=== PATIENT | female | born 1950 | race Caucasian/White ===

== ENCOUNTER → 2016-11-22 | Outpatient (CLI) | payer OTHER ==
[~2016-11-22] MED LIST: CELEXA20 MG PO; DIABETA5 MG PO; DONNATAL 5 ML5 ML PO; KEFLEX500 MG PO; LOSARTAN POTASS25 M1 PO; METFORMIN HCL1000 MG PO; SIMVASTATIN40 MG PO; TRAZADONE HYDR100 MG PO; VICODIN 500 MG-1 TAB PO
== END | disposition home or self-care (01) ==
LOC: MAMMO 13:07
DX: Z12.31 Encounter for screening mammogram for malignant neoplasm of breast (principal)

== ENCOUNTER → 2017-01-18 | Outpatient (CLI) | payer OTHER | END | disposition home or self-care (01) | LOC: RAD 10:43 | DX: R10.9 Unspecified abdominal pain (principal); M54.5 Low back pain; I10 Essential (primary) hypertension; E11.9 Type 2 diabetes mellitus without complications; Z87.891 Personal history of nicotine dependence ==

== ENCOUNTER → 2017-03-28 | Outpatient (CLI) | payer OTHER | END | disposition home or self-care (01) | LOC: US 14:46 | DX: N30.01 Acute cystitis with hematuria (principal); N32.89 Other specified disorders of bladder ==

== ENCOUNTER 2017-04-26 11:39 | Emergency (ER) | payer OTHER ==
[~2017-04-26] VITALS: Ht 157.4 cm; Wt 65.3 kg
[2017-04-26 11:59] VITALS: BP 114/63
[2017-04-26 12:19] LABS: BASO # 0.1 10*3/uL (0.0-0.1); BASO % 0.7 % (0.0-1.0); EOS # 0.5 10*3/uL (0.0-0.4); HEMATOCRIT 32.6 % (37.0-47.0); HEMOGLOBIN 10.4 g/dl (12.0-16.0); LYMPH % 23.4 % (27.0-41.0); MEAN CELL VOLUME 81.9 fl (81.0-99.0); MEAN CORPUSCULAR HGB 26.1 pg (27.0-31.0); MEAN CORPUSCULAR HGB CONC 31.9 g/dl (33.0-37.0); MEAN PLATELET VOLUME 10.7 fl (9.6-12.3); MONO # 0.8 10*3/uL (0.1-1.0); MONO % 8.7 % (3.0-9.0); NEUT # 5.3 10*3/uL (2.3-7.9); NEUT % 60.7 % (47.0-73.0); PLATELET COUNT AUTOMATED 195 10*3/uL (130-400); RED BLOOD COUNT 3.98 10*6/uL (4.10-5.10); RED CELL DISTRI WIDTH 14.4 % (0-14.5); WHITE BLOOD COUNT 8.7 10*3/uL (4.8-10.8)
[2017-04-26 12:28] LABS: ACT PARTIAL THROMBO TIME 24.3 SECONDS (20.8-31.5)
[2017-04-26] MEDS ORDERED: TOUJEO SOL300 UNIT/1 SQ (12:35)
[2017-04-26 12:36] LABS: ALBUMIN 3.3 gm/dl (3.1-4.5); CREATININE 1.26 mg/dL (0.55-1.02); POTASSIUM 3.9 mmol/L (3.5-5.1); TOTAL PROTEIN 7.7 gm/dL (6.4-8.2)
[2017-04-26] MEDS ORDERED: JANUVIA100 MG PO (12:36)
[2017-04-26 12:37] LABS: TROPONIN I 0.035 ng/ml (<0.045)
[2017-04-26] MEDS ORDERED: VITAMIN D5000 UNI1 PO (12:37)
[2017-04-26] MEDS ORDERED: FOSAMAX70 M1 PO (12:37)
[2017-04-26] MEDS ORDERED: SENNA8.6 MG PO (12:37)
[2017-04-26] MEDS ORDERED: Synthroid,Levo25 MCG PO (12:38)
[2017-04-26] MEDS ORDERED: LOSARTAN-HCTZ1 EACH PO (12:38)
[2017-04-26] MEDS ORDERED: PRILOSEC20 M1 PO (12:38)
[2017-04-26] MEDS ORDERED: ATORVASTATIN CA20 M1 PO (12:39)
[2017-04-26] MEDS ORDERED: SERTRALINE HYD100 MG PO (12:39)
[2017-04-26] MEDS ORDERED: IBUPROFEN600 MG PO (12:40)
[2017-04-26] MEDS ORDERED: MECLIZINE HCL25 M2 PO (12:40)
[2017-04-26] MEDS ORDERED: ZYRTEC10 MG PO (12:40)
== END 2017-04-26 15:36 | disposition home or self-care (01) ==
LOC: ED 11:39
PROVIDERS: Emergency Medicine
DX: R06.02 Shortness of breath (principal); R06.00 Dyspnea, unspecified; R07.89 Other chest pain; Z98.51 Tubal ligation status; Z79.899 Other long term (current) drug therapy; Z79.4 Long term (current) use of insulin

== ENCOUNTER → 2018-11-28 | Outpatient (CLI) | payer OTHER ==
[~2018-11-28] MED LIST changes: +ATORVASTATIN CA20 M1 PO; +FOSAMAX70 M1 PO; +IBUPROFEN600 MG PO; +JANUVIA100 MG PO; +LOSARTAN-HCTZ1 EACH PO; +MECLIZINE HCL25 M2 PO; +PRILOSEC20 M1 PO; +SENNA8.6 MG PO; +SERTRALINE HYD100 MG PO; +Synthroid,Levo25 MCG PO; +TOUJEO SOL300 UNIT/1 SQ; +VITAMIN D5000 UNI1 PO; +ZYRTEC10 MG PO
== END | disposition home or self-care (01) ==
LOC: US 12:50
DX: N95.0 Postmenopausal bleeding (principal)

== ENCOUNTER → 2019-02-11 | Outpatient (CLI) | payer OTHER ==
[2019-02-11 12:17] LABS: BASO # 0.1 10*3/uL (0.0-0.1); BASO % 0.5 % (0.0-1.0); EOS # 0.2 10*3/uL (0.0-0.4); EOS % 1.6 % (1.0-4.0); HEMATOCRIT 33.2 % (37.0-47.0); HEMOGLOBIN 10.3 g/dl (12.0-16.0); LYMPH # 1.6 10*3/uL (1.3-4.4); LYMPH % 16.6 % (27.0-41.0); MEAN CELL VOLUME 82.4 fl (81.0-99.0); MEAN CORPUSCULAR HGB 25.6 pg (27.0-31.0); MEAN PLATELET VOLUME 10.8 fl (9.6-12.3); MONO # 0.7 10*3/uL (0.1-1.0); MONO % 6.8 % (3.0-9.0); NEUT # 7.1 10*3/uL (2.3-7.9); NEUT % 73.8 % (47.0-73.0); PLATELET COUNT AUTOMATED 177 10*3/uL (130-400); RED BLOOD COUNT 4.03 10*6/uL (4.10-5.10); RED CELL DISTRI WIDTH 14.6 % (0-14.5); WHITE BLOOD COUNT 9.7 10*3/uL (4.8-10.8)
[2019-02-11 12:30] LABS: ALBUMIN 3.5 gm/dl (3.1-4.5); ALKALINE PHOSPHATASE 76 U/L (45-117); BUN 18 mg/dl (7-24); CHLORIDE 108 mmol/L (98-107); CREATININE 1.07 mg/dL (0.55-1.02); POTASSIUM 3.9 mmol/L (3.5-5.1); SGOT/AST 14 IU/L (3-35); SGPT/ALT 25 U/L (12-78); SODIUM 138 mmol/L (136-145); TOTAL PROTEIN 7.5 gm/dL (6.4-8.2)
== END | disposition home or self-care (01) ==
LOC: LAB 11:54
PROVIDERS: Internal Medicine Hematology & Oncology
DX: Z51.11 Encounter for antineoplastic chemotherapy (principal); C53.9 Malignant neoplasm of cervix uteri, unspecified; C53.8 Malignant neoplasm of overlapping sites of cervix uteri; R11.2 Nausea with vomiting, unspecified

== ENCOUNTER → 2020-03-02 | Outpatient (CLI) | payer OTHER ==
[2020-03-02 11:33] LABS: BILIRUBIN Negative (Negative); BLOOD Trace-Intact (Negative); CLARITY Clear (Clear); COLOR Yellow (Yellow); GLUCOSE Negative (Negative); KETONE Negative (Negative); LEUKO ESTERASE 1+ (Negative); NITRITE Negative (Negative); PH 5.5 (4.5-8.0); UROBILINOGEN 0.2 E.U./dl (0.0-1.0)
[2020-03-02 11:51] LABS: BACTERIA TRACE; EPITHELIAL CELLS 0-2
[2020-03-02 12:01] LABS: CREATININE 1.45 mg/dL (0.55-1.02); POTASSIUM 4.4 mmol/L (3.5-5.1)
[2020-03-02 12:24] LABS: PTH INTACT 47.9 pg/mL (18.5-88.0); VITAMIN D, 25-HYDROXY 77.5 ng/mL (30-100)
[2020-03-03 10:07] LABS: CREATININE,URINE 45.7 mg/dL (Not Estab.)
== END | disposition home or self-care (01) ==
LOC: US 03-01 08:30 → LAB 10:25 → US 10:30
PROVIDERS: ATTEND Internal Medicine Nephrology
DX: N18.32 Chronic kidney disease, stage 3b (principal); E55.9 Vitamin D deficiency, unspecified

== ENCOUNTER → 2020-05-16 | Outpatient (CLI) | payer OTHER | END | disposition home or self-care (01) | LOC: COVID19 12:08 | PROVIDERS: ATTEND Internal Medicine Nephrology | DX: Z20.822 Contact with and (suspected) exposure to COVID-19 (principal) ==

== ENCOUNTER → 2020-10-19 | Outpatient (CLI) | payer OTHER ==
[~2020-10-19] MED LIST changes: +ASPIRIN CHEWABL81 MG PO; +FEROSUL325 M1 PO; +IRBESARTAN150 MG PO; +LEVOFLOXACIN500 MG PO; +LEVOTHYROXINE50 MCG PO; +NATURE'S BLEND F1 MG PO; +NEURONTIN300 MG PO; +TRESIBA FL100 UNIT/1 SQ
== END | disposition home or self-care (01) ==
LOC: RAD 12:19
PROVIDERS: ATTEND Internal Medicine Nephrology
DX: J84.10 Pulmonary fibrosis, unspecified (principal); J18.9 Pneumonia, unspecified organism; J98.4 Other disorders of lung

== ENCOUNTER → 2020-11-03 | Outpatient (CLI) | payer OTHER | END | disposition home or self-care (01) | LOC: RAD 12:03 | PROVIDERS: ATTEND Internal Medicine Nephrology | DX: J44.9 Chronic obstructive pulmonary disease, unspecified (principal); J84.9 Interstitial pulmonary disease, unspecified; J84.10 Pulmonary fibrosis, unspecified; I51.7 Cardiomegaly; E11.65 Type 2 diabetes mellitus with hyperglycemia ==

== ENCOUNTER → 2020-11-24 | Outpatient (CLI) | payer OTHER | END | disposition home or self-care (01) | LOC: MAMMO 10:36 | PROVIDERS: ATTEND Internal Medicine Nephrology | DX: Z12.31 Encounter for screening mammogram for malignant neoplasm of breast (principal); N64.89 Other specified disorders of breast ==

== ENCOUNTER → 2020-12-20 | Outpatient (CLI) | payer OTHER | END | disposition home or self-care (01) | LOC: CT 07:46 | PROVIDERS: ATTEND Internal Medicine Nephrology | DX: J84.10 Pulmonary fibrosis, unspecified (principal); I25.10 Atherosclerotic heart disease of native coronary artery without angina pectoris; K44.9 Diaphragmatic hernia without obstruction or gangrene; A48.1 Legionnaires' disease ==

== ENCOUNTER → 2021-02-23 | Outpatient (CLI) | payer OTHER | END | disposition home or self-care (01) | LOC: US 08:21 | PROVIDERS: ATTEND Internal Medicine Nephrology | DX: K76.0 Fatty (change of) liver, not elsewhere classified (principal); K52.9 Noninfective gastroenteritis and colitis, unspecified ==

== ENCOUNTER → 2021-04-19 | Outpatient (CLI) | payer OTHER | END | disposition home or self-care (01) | LOC: RAD 08:39 | PROVIDERS: ATTEND Internal Medicine Nephrology | DX: Z13.820 Encounter for screening for osteoporosis (principal); M81.0 Age-related osteoporosis without current pathological fracture; Z78.0 Asymptomatic menopausal state ==

== ENCOUNTER → 2022-04-09 | Outpatient (CLI) | payer OTHER | END | disposition home or self-care (01) | LOC: MAMMO 10:30 | PROVIDERS: ATTEND Internal Medicine Nephrology | DX: Z12.31 Encounter for screening mammogram for malignant neoplasm of breast (principal) ==

== ENCOUNTER → 2022-04-26 | Outpatient (CLI) | payer OTHER | END | disposition home or self-care (01) | LOC: MAMMO 12:41 | PROVIDERS: ATTEND Internal Medicine Nephrology | DX: R92.8 Other abnormal and inconclusive findings on diagnostic imaging of breast (principal); R92.2 Inconclusive mammogram ==

== ENCOUNTER 2022-09-07 11:05 | Emergency (ER) | payer OTHER ==
[~2022-09-07] VITALS: Wt 60.8 kg
[2022-09-07 11:16] VITALS: BP 140/86
[2022-09-07 12:03] LABS: BASO % 0.6 % (0.0-1.0); EOS # 0.2 10*3/uL (0.0-0.4); EOS % 4.1 % (1.0-4.0); HEMATOCRIT 33.1 % (37.0-47.0); LYMPH % 17.7 % (27.0-41.0); MEAN CELL VOLUME 85.1 fl (81.0-99.0); MEAN CORPUSCULAR HGB 26.7 pg (27.0-31.0); MEAN CORPUSCULAR HGB CONC 31.4 g/dl (33.0-37.0); MEAN PLATELET VOLUME 10.4 fl (9.6-12.3); MONO # 0.6 10*3/uL (0.1-1.0); MONO % 10.9 % (3.0-9.0); NEUT # 3.6 10*3/uL (2.3-7.9); NEUT % 66.3 % (47.0-73.0); PLATELET COUNT AUTOMATED 190 10*3/uL (130-400); RED BLOOD COUNT 3.89 10*6/uL (4.10-5.10); RED CELL DISTRI WIDTH 15.9 % (0-14.5); WHITE BLOOD COUNT 5.4 10*3/uL (4.8-10.8)
[2022-09-07 12:04] LABS: BILIRUBIN Negative (Negative); BLOOD Negative (Negative); CLARITY Clear (Clear); COLOR Yellow (Yellow); GLUCOSE Negative (Negative); KETONE Trace (Negative); LEUKO ESTERASE Trace (Negative); NITRITE Negative (Negative)
[2022-09-07 12:16] LABS: BACTERIA TRACE; RBC 0-2 rbc/hpf (0-2)
[2022-09-07 12:16] LABS: ACT PARTIAL THROMBO TIME 30.7 SECONDS (20.0-32.1)
[2022-09-07 12:24] LABS: POTASSIUM 4.1 mmol/L (3.4-5.1); TOTAL PROTEIN 7.7 gm/dL (6.0-8.0)
[2022-09-07] MEDS ORDERED: PREDNISONE20 M1 PO (14:34)
[2022-09-07] MEDS ORDERED: VIBRAMYCIN100 MG PO (14:34)
[2022-09-07] MEDS ORDERED: PROVENTIL HFA6.7 GM INH (14:34)
== END 2022-09-07 14:41 | disposition home or self-care (01) ==
LOC: ED 11:05
PROVIDERS: Physician Assistant
DX: J18.9 Pneumonia, unspecified organism (principal); E11.9 Type 2 diabetes mellitus without complications; I10 Essential (primary) hypertension; F32.A Depression, unspecified; E78.00 Pure hypercholesterolemia, unspecified; Z98.51 Tubal ligation status; Z98.890 Other specified postprocedural states

== ENCOUNTER 2022-09-21 09:20 | Inpatient (IN) | payer OTHER ==
[~2022-09-21] VITALS: Wt 57.6 kg
[2022-09-21] VITALS (10 sets, daily range): BP systolic 110–158; BP diastolic 47–84
[~2022-09-21 09:20] MED LIST changes: +PREDNISONE20 M1 PO; +PROVENTIL HFA6.7 GM INH; +VIBRAMYCIN100 MG PO
[2022-09-21 10:14] LABS: BASO # 0.1 10*3/uL (0.0-0.1); BASO % 0.5 % (0.0-1.0); EOS # 0.1 10*3/uL (0.0-0.4); EOS % 0.5 % (1.0-4.0); HEMATOCRIT 33.7 % (37.0-47.0); LYMPH # 0.6 10*3/uL (1.3-4.4); LYMPH % 4.6 % (27.0-41.0); MEAN CORPUSCULAR HGB 26.4 pg (27.0-31.0); MEAN CORPUSCULAR HGB CONC 31.5 g/dl (33.0-37.0); MEAN PLATELET VOLUME 10.2 fl (9.6-12.3); MONO # 0.6 10*3/uL (0.1-1.0); MONO % 4.9 % (3.0-9.0); NEUT # 11.4 10*3/uL (2.3-7.9); NEUT % 89.1 % (47.0-73.0); PLATELET COUNT AUTOMATED 285 10*3/uL (130-400); RED BLOOD COUNT 4.01 10*6/uL (4.10-5.10); RED CELL DISTRI WIDTH 15.9 % (0-14.5); WHITE BLOOD COUNT 12.7 10*3/uL (4.8-10.8)
[2022-09-21 10:26] LABS: ACT PARTIAL THROMBO TIME 32.7 SECONDS (20.0-32.1); INTERNATIONAL NORM RATIO 1.1 (2.0-3.5)
[2022-09-21] MEDS ORDERED: TOUJEO SOL300 UNIT/1 SQ (10:29)
[2022-09-21 10:36] LABS: ALKALINE PHOSPHATASE 114 U/L (46-116); BUN 17 mg/dl (9-23); CHLORIDE 105 mmol/L (98-107); LIPASE 23 U/L (12-53); POTASSIUM 3.9 mmol/L (3.4-5.1); SGPT/ALT 15 U/L (10-49); TOTAL PROTEIN 6.5 gm/dL (6.0-8.0)
[2022-09-21 23:19] LABS: ABG BASE EXCESS -4.5 mmol/L (-2.0-2.0); ARTERIAL BLOOD GAS PH 7.443 (7.35-7.45); ARTERIAL BLOOD GAS PO2 61.9 (80-90)
[2022-09-22 03:38] LABS: ABG BASE EXCESS -4.1 mmol/L (-2.0-2.0); ARTERIAL BLOOD GAS PH 7.477 (7.35-7.45)
[2022-09-22 04:00] VITALS: BP 138/76
[2022-09-22 06:15] LABS: MEAN CELL VOLUME 84.2 fl (81.0-99.0); MEAN CORPUSCULAR HGB CONC 30.9 g/dl (33.0-37.0); MEAN PLATELET VOLUME 10.6 fl (9.6-12.3); PLATELET COUNT AUTOMATED 232 10*3/uL (130-400); RED BLOOD COUNT 3.92 10*6/uL (4.10-5.10); WHITE BLOOD COUNT 10.1 10*3/uL (4.8-10.8)
[2022-09-22 06:24] LABS: MANUAL DIFF REFLEX YES
[2022-09-22 07:19] LABS: MICROCYTOSIS SLIGHT; PLATELET SUFFICIENCY NORMAL (NORMAL); TOTAL CELLS COUNTED 100 #CELLS
[2022-09-22 07:20] LABS: BURR CELLS FEW; OVALOCYTES FEW; POLYCHROMASIA SLIGHT; SCHISTOCYTES FEW
[2022-09-22 08:00] VITALS: BP 89/57
[2022-09-22 09:00] LABS: POTASSIUM 3.8 mmol/L (3.4-5.1); TOTAL PROTEIN 6.8 gm/dL (6.0-8.0)
[2022-09-22 12:00] VITALS: BP 113/53
[2022-09-22 13:10] LABS: ABG BASE EXCESS -1.4 mmol/L (-2.0-2.0); ARTERIAL BLOOD GAS PH 7.471 (7.35-7.45); ARTERIAL BLOOD GAS PO2 84.7 (80-90)
[2022-09-22 16:00] VITALS: BP 123/58
[2022-09-22 20:00] VITALS: BP 103/67
[2022-09-22 22:04] VITALS: BP 89/52
[2022-09-23] VITALS (12 sets, daily range): BP systolic 79–115; BP diastolic 43–62
[2022-09-23 06:15] LABS: BASO % 0.2 % (0.0-1.0); HEMATOCRIT 28.1 % (37.0-47.0); LYMPH # 0.4 10*3/uL (1.3-4.4); LYMPH % 6.6 % (27.0-41.0); MEAN CELL VOLUME 82.4 fl (81.0-99.0); MEAN CORPUSCULAR HGB 26.4 pg (27.0-31.0); MEAN PLATELET VOLUME 10.8 fl (9.6-12.3); MONO # 0.2 10*3/uL (0.1-1.0); MONO % 3.3 % (3.0-9.0); NEUT # 4.9 10*3/uL (2.3-7.9); NEUT % 89.5 % (47.0-73.0); PLATELET COUNT AUTOMATED 207 10*3/uL (130-400); RED BLOOD COUNT 3.41 10*6/uL (4.10-5.10); RED CELL DISTRI WIDTH 15.8 % (0-14.5); WHITE BLOOD COUNT 5.5 10*3/uL (4.8-10.8)
[2022-09-23 08:01] LABS: POTASSIUM 3.7 mmol/L (3.4-5.1)
[2022-09-23 08:31] LABS: ABG BASE EXCESS -1.4 mmol/L (-2.0-2.0); ARTERIAL BLOOD GAS PH 7.45 (7.35-7.45); ARTERIAL BLOOD GAS PO2 78.9 (80-90)
[2022-09-24] VITALS (13 sets, daily range): BP systolic 89–127; BP diastolic 39–59
[2022-09-24 05:40] LABS: ALKALINE PHOSPHATASE 109 U/L (46-116); BUN 23 mg/dl (9-23); CHLORIDE 108 mmol/L (98-107); LDH 567 U/L (120-246); POTASSIUM 3.5 mmol/L (3.4-5.1); SGPT/ALT 21 U/L (10-49)
[2022-09-24 06:07] LABS: BASO % 0.1 % (0.0-1.0); HEMATOCRIT 25.1 % (37.0-47.0); LYMPH # 0.5 10*3/uL (1.3-4.4); LYMPH % 7.1 % (27.0-41.0); MEAN CELL VOLUME 83.9 fl (81.0-99.0); MEAN CORPUSCULAR HGB 26.4 pg (27.0-31.0); MEAN CORPUSCULAR HGB CONC 31.5 g/dl (33.0-37.0); MEAN PLATELET VOLUME 10.7 fl (9.6-12.3); MONO # 0.3 10*3/uL (0.1-1.0); MONO % 4.4 % (3.0-9.0); NEUT # 6.4 10*3/uL (2.3-7.9); NEUT % 87.9 % (47.0-73.0); PLATELET COUNT AUTOMATED 189 10*3/uL (130-400); RED BLOOD COUNT 2.99 10*6/uL (4.10-5.10); RED CELL DISTRI WIDTH 15.7 % (0-14.5); WHITE BLOOD COUNT 7.3 10*3/uL (4.8-10.8)
[2022-09-25] VITALS (13 sets, daily range): BP systolic 78–147; BP diastolic 41–70
[2022-09-25 07:04] LABS: HEMATOCRIT 25.3 % (37.0-47.0); LYMPH # 0.6 10*3/uL (1.3-4.4); LYMPH % 9.4 % (27.0-41.0); MEAN CELL VOLUME 83.2 fl (81.0-99.0); MEAN CORPUSCULAR HGB 26.6 pg (27.0-31.0); MEAN PLATELET VOLUME 10.8 fl (9.6-12.3); MONO # 0.3 10*3/uL (0.1-1.0); MONO % 5.2 % (3.0-9.0); NEUT % 84.2 % (47.0-73.0); PLATELET COUNT AUTOMATED 189 10*3/uL (130-400); RED BLOOD COUNT 3.04 10*6/uL (4.10-5.10); RED CELL DISTRI WIDTH 15.8 % (0-14.5); WHITE BLOOD COUNT 5.9 10*3/uL (4.8-10.8)
[2022-09-25 07:14] LABS: BUN 26 mg/dl (9-23); CHLORIDE 108 mmol/L (98-107); POTASSIUM 3.7 mmol/L (3.4-5.1)
[2022-09-25 13:06] LABS: MYCOPLASMA PNEUMONIAE IGG <100 U/mL (0-99); MYCOPLASMA PNEUMONIAE IGM <770 U/mL (0-769)
[2022-09-26] VITALS (13 sets, daily range): BP systolic 84–150; BP diastolic 52–81
[2022-09-26 05:17] LABS: POTASSIUM 4.1 mmol/L (3.4-5.1); TOTAL PROTEIN 5.9 gm/dL (6.0-8.0)
[2022-09-26 06:22] LABS: BASO % 0.1 % (0.0-1.0); EOS % 0.6 % (1.0-4.0); HEMATOCRIT 25.2 % (37.0-47.0); LYMPH # 0.8 10*3/uL (1.3-4.4); LYMPH % 12.3 % (27.0-41.0); MEAN CELL VOLUME 84.3 fl (81.0-99.0); MEAN CORPUSCULAR HGB 26.4 pg (27.0-31.0); MEAN CORPUSCULAR HGB CONC 31.3 g/dl (33.0-37.0); MEAN PLATELET VOLUME 10.8 fl (9.6-12.3); MONO # 0.3 10*3/uL (0.1-1.0); MONO % 4.7 % (3.0-9.0); NEUT # 5.5 10*3/uL (2.3-7.9); NEUT % 80.7 % (47.0-73.0); NUCLEATED RED BLOOD CELL 0.3 % (0.0-0.0); PLATELET COUNT AUTOMATED 191 10*3/uL (130-400); RED BLOOD COUNT 2.99 10*6/uL (4.10-5.10); WHITE BLOOD COUNT 6.8 10*3/uL (4.8-10.8)
[2022-09-26 07:46] LABS: ARTERIAL BLOOD GAS PH 7.45 (7.35-7.45); ARTERIAL BLOOD GAS PO2 64.9 (80-90)
[2022-09-27] VITALS (58 sets, daily range): BP systolic 58–184; BP diastolic 40–78
[2022-09-27 00:06] LABS: HISTOPLASMA MYCLIAL AB Negative (Neg:<1:2); HISTOPLASMA YEAST AB Negative (Neg:<1:2)
[2022-09-27 06:28] LABS: BUN 23 mg/dl (9-23); CHLORIDE 109 mmol/L (98-107); POTASSIUM 3.9 mmol/L (3.4-5.1)
[2022-09-27 06:37] LABS: BASO % 0.1 % (0.0-1.0); EOS # 0.1 10*3/uL (0.0-0.4); EOS % 0.7 % (1.0-4.0); HEMATOCRIT 24.9 % (37.0-47.0); LYMPH # 0.7 10*3/uL (1.3-4.4); LYMPH % 10.7 % (27.0-41.0); MEAN CELL VOLUME 83.8 fl (81.0-99.0); MEAN CORPUSCULAR HGB 26.3 pg (27.0-31.0); MEAN CORPUSCULAR HGB CONC 31.3 g/dl (33.0-37.0); MEAN PLATELET VOLUME 11.2 fl (9.6-12.3); MONO # 0.3 10*3/uL (0.1-1.0); NEUT # 5.6 10*3/uL (2.3-7.9); NEUT % 83.6 % (47.0-73.0); PLATELET COUNT AUTOMATED 185 10*3/uL (130-400); RED BLOOD COUNT 2.97 10*6/uL (4.10-5.10); RED CELL DISTRI WIDTH 16.1 % (0-14.5); WHITE BLOOD COUNT 6.7 10*3/uL (4.8-10.8)
[2022-09-27 14:30] LABS: ARTERIAL BLOOD GAS PH 7.311 (7.35-7.45); ARTERIAL BLOOD GAS PO2 131.5 (80-90)
[2022-09-27 14:31] LABS: ABG BASE EXCESS -7.2 mmol/L (-2.0-2.0)
[2022-09-27 17:26] LABS: ARTERIAL BLOOD GAS PH 7.298 (7.35-7.45)
[2022-09-27 19:38] LABS: ABG BASE EXCESS -6.6 mmol/L (-2.0-2.0); ARTERIAL BLOOD GAS PH 7.369 (7.35-7.45); ARTERIAL BLOOD GAS PO2 83.2 (80-90)
[2022-09-28] VITALS (10 sets, daily range): BP systolic 88–113; BP diastolic 50–64
[2022-09-28 06:46] LABS: ALKALINE PHOSPHATASE 101 U/L (46-116); BUN 18 mg/dl (9-23); CHLORIDE 108 mmol/L (98-107); LDH 551 U/L (120-246); POTASSIUM 3.3 mmol/L (3.4-5.1); SGPT/ALT 27 U/L (10-49)
[2022-09-28 07:14] LABS: BASO % 0.1 % (0.0-1.0); EOS # 0.2 10*3/uL (0.0-0.4); EOS % 1.7 % (1.0-4.0); HEMATOCRIT 26.8 % (37.0-47.0); LYMPH # 1.1 10*3/uL (1.3-4.4); LYMPH % 9.7 % (27.0-41.0); MEAN CELL VOLUME 84.5 fl (81.0-99.0); MEAN CORPUSCULAR HGB 26.5 pg (27.0-31.0); MEAN CORPUSCULAR HGB CONC 31.3 g/dl (33.0-37.0); MEAN PLATELET VOLUME 10.9 fl (9.6-12.3); MONO # 0.7 10*3/uL (0.1-1.0); MONO % 6.3 % (3.0-9.0); NEUT % 81.1 % (47.0-73.0); NUCLEATED RED BLOOD CELL 0.4 % (0.0-0.0); RED BLOOD COUNT 3.17 10*6/uL (4.10-5.10); RED CELL DISTRI WIDTH 16.5 % (0-14.5)
[2022-09-28 07:15] LABS: PLATELET COUNT AUTOMATED 253 10*3/uL (130-400)
[2022-09-28 08:01] LABS: ABG BASE EXCESS -4.7 mmol/L (-2.0-2.0); ARTERIAL BLOOD GAS PH 7.314 (7.35-7.45); ARTERIAL BLOOD GAS PO2 87.8 (80-90)
[2022-09-29] VITALS (12 sets, daily range): BP systolic 90–130; BP diastolic 47–69
[2022-09-29 06:07] LABS: ALKALINE PHOSPHATASE 90 U/L (46-116); BUN 16 mg/dl (9-23); CHLORIDE 109 mmol/L (98-107); LDH 495 U/L (120-246); POTASSIUM 3.2 mmol/L (3.4-5.1); SGPT/ALT 25 U/L (10-49); TOTAL PROTEIN 5.6 gm/dL (6.0-8.0)
[2022-09-29 06:21] LABS: BASO % 0.1 % (0.0-1.0); EOS # 0.1 10*3/uL (0.0-0.4); EOS % 1.1 % (1.0-4.0); HEMATOCRIT 24.8 % (37.0-47.0); LYMPH # 0.8 10*3/uL (1.3-4.4); LYMPH % 9.1 % (27.0-41.0); MEAN CELL VOLUME 86.1 fl (81.0-99.0); MEAN CORPUSCULAR HGB 25.7 pg (27.0-31.0); MEAN CORPUSCULAR HGB CONC 29.8 g/dl (33.0-37.0); MEAN PLATELET VOLUME 10.8 fl (9.6-12.3); MONO # 0.5 10*3/uL (0.1-1.0); MONO % 5.8 % (3.0-9.0); NEUT # 7.2 10*3/uL (2.3-7.9); NEUT % 82.3 % (47.0-73.0); PLATELET COUNT AUTOMATED 191 10*3/uL (130-400); RED BLOOD COUNT 2.88 10*6/uL (4.10-5.10); RED CELL DISTRI WIDTH 16.4 % (0-14.5); WHITE BLOOD COUNT 8.8 10*3/uL (4.8-10.8)
[2022-09-29 08:12] LABS: ABG BASE EXCESS -1.5 mmol/L (-2.0-2.0); ARTERIAL BLOOD GAS PH 7.374 (7.35-7.45); ARTERIAL BLOOD GAS PO2 75.3 (80-90)
[2022-09-30] VITALS (12 sets, daily range): BP systolic 99–140; BP diastolic 52–72
[2022-09-30 06:20] LABS: BASO % 0.1 % (0.0-1.0); EOS # 0.4 10*3/uL (0.0-0.4); EOS % 4.3 % (1.0-4.0); HEMATOCRIT 24.3 % (37.0-47.0); LYMPH # 1.1 10*3/uL (1.3-4.4); LYMPH % 12.6 % (27.0-41.0); MEAN CELL VOLUME 86.5 fl (81.0-99.0); MEAN CORPUSCULAR HGB 25.6 pg (27.0-31.0); MEAN CORPUSCULAR HGB CONC 29.6 g/dl (33.0-37.0); MEAN PLATELET VOLUME 11.1 fl (9.6-12.3); MONO # 0.6 10*3/uL (0.1-1.0); MONO % 6.6 % (3.0-9.0); NEUT # 6.4 10*3/uL (2.3-7.9); NEUT % 74.3 % (47.0-73.0); NUCLEATED RED BLOOD CELL 0.3 % (0.0-0.0); PLATELET COUNT AUTOMATED 204 10*3/uL (130-400); RED BLOOD COUNT 2.81 10*6/uL (4.10-5.10); RED CELL DISTRI WIDTH 16.8 % (0-14.5); WHITE BLOOD COUNT 8.6 10*3/uL (4.8-10.8)
[2022-09-30 06:33] LABS: ALKALINE PHOSPHATASE 77 U/L (46-116); BUN 14 mg/dl (9-23); CHLORIDE 111 mmol/L (98-107); POTASSIUM 3.7 mmol/L (3.4-5.1); SGPT/ALT 24 U/L (10-49); TOTAL PROTEIN 5.3 gm/dL (6.0-8.0)
[2022-09-30 07:55] LABS: ABG BASE EXCESS -1.8 mmol/L (-2.0-2.0); ARTERIAL BLOOD GAS PH 7.351 (7.35-7.45); ARTERIAL BLOOD GAS PO2 82.6 (80-90)
[2022-10-01] VITALS (16 sets, daily range): BP systolic 80–133; BP diastolic 42–71
[2022-10-01 05:17] LABS: ALKALINE PHOSPHATASE 88 U/L (46-116); CHLORIDE 107 mmol/L (98-107); POTASSIUM 3.5 mmol/L (3.4-5.1); SGPT/ALT 29 U/L (10-49); TOTAL PROTEIN 5.7 gm/dL (6.0-8.0)
[2022-10-01 05:25] LABS: BUN 26 mg/dl (9-23)
[2022-10-01 06:20] LABS: HEMATOCRIT 27.3 % (37.0-47.0); MEAN CELL VOLUME 85.8 fl (81.0-99.0); MEAN CORPUSCULAR HGB 26.1 pg (27.0-31.0); MEAN CORPUSCULAR HGB CONC 30.4 g/dl (33.0-37.0); MEAN PLATELET VOLUME 10.5 fl (9.6-12.3); NUCLEATED RED BLOOD CELL 0.1 10*3/uL (0.0-0.0); NUCLEATED RED BLOOD CELL 0.5 % (0.0-0.0); PLATELET COUNT AUTOMATED 257 10*3/uL (130-400); RED BLOOD COUNT 3.18 10*6/uL (4.10-5.10); RED CELL DISTRI WIDTH 16.5 % (0-14.5); WHITE BLOOD COUNT 12.6 10*3/uL (4.8-10.8)
[2022-10-01 06:44] LABS: MANUAL DIFF REFLEX YES
[2022-10-01 07:35] LABS: PLATELET SUFFICIENCY NORMAL (NORMAL); POLYCHROMASIA SLIGHT; TOTAL CELLS COUNTED 100 #CELLS
[2022-10-01 08:08] LABS: ABG BASE EXCESS -1.2 mmol/L (-2.0-2.0); ARTERIAL BLOOD GAS PH 7.335 (7.35-7.45); ARTERIAL BLOOD GAS PO2 73.7 (80-90)
[2022-10-01 11:51] LABS: ABG BASE EXCESS 0.5 mmol/L (-2.0-2.0); ARTERIAL BLOOD GAS PH 7.395 (7.35-7.45); ARTERIAL BLOOD GAS PO2 67.5 (80-90)
[2022-10-01 14:12] LABS: ARTERIAL BLOOD GAS PH 7.416 (7.35-7.45); ARTERIAL BLOOD GAS PO2 54.6 (80-90)
[2022-10-02] VITALS (12 sets, daily range): BP systolic 90–130; BP diastolic 49–82
[2022-10-02 06:17] LABS: MEAN CELL VOLUME 84.5 fl (81.0-99.0); MEAN CORPUSCULAR HGB CONC 30.8 g/dl (33.0-37.0); MEAN PLATELET VOLUME 10.9 fl (9.6-12.3); NUCLEATED RED BLOOD CELL 0.1 10*3/uL (0.0-0.0); NUCLEATED RED BLOOD CELL 0.5 % (0.0-0.0); PLATELET COUNT AUTOMATED 215 10*3/uL (130-400); RED BLOOD COUNT 2.96 10*6/uL (4.10-5.10); RED CELL DISTRI WIDTH 16.5 % (0-14.5); WHITE BLOOD COUNT 10.5 10*3/uL (4.8-10.8)
[2022-10-02 06:22] LABS: MANUAL DIFF REFLEX YES
[2022-10-02 06:31] LABS: TOTAL PROTEIN 5.8 gm/dL (6.0-8.0)
[2022-10-02 06:57] LABS: ATYPICAL LYMPHS 1 % (0-0); OVALOCYTES FEW; PLATELET SUFFICIENCY NORMAL (NORMAL); POLYCHROMASIA SLIGHT; ROULEAUX SLIGHT; SCHISTOCYTES FEW; TOTAL CELLS COUNTED 100 #CELLS
[2022-10-02 07:11] LABS: POTASSIUM 2.5 mmol/L (3.4-5.1)
[2022-10-02 08:01] LABS: ABG BASE EXCESS 4.5 mmol/L (-2.0-2.0); ARTERIAL BLOOD GAS PH 7.491 (7.35-7.45); ARTERIAL BLOOD GAS PO2 74.4 (80-90)
[2022-10-02 16:14] LABS: ABG BASE EXCESS 2.2 mmol/L (-2.0-2.0); ARTERIAL BLOOD GAS PH 7.466 (7.35-7.45); ARTERIAL BLOOD GAS PO2 78.2 (80-90)
[2022-10-03] VITALS (12 sets, daily range): BP systolic 99–145; BP diastolic 54–78
[2022-10-03 04:35] LABS: BASO % 0.1 % (0.0-1.0); EOS # 0.5 10*3/uL (0.0-0.4); EOS % 4.3 % (1.0-4.0); HEMATOCRIT 24.5 % (37.0-47.0); LYMPH # 1.1 10*3/uL (1.3-4.4); LYMPH % 9.9 % (27.0-41.0); MEAN CELL VOLUME 85.1 fl (81.0-99.0); MEAN CORPUSCULAR HGB 26.4 pg (27.0-31.0); MEAN PLATELET VOLUME 10.5 fl (9.6-12.3); MONO # 0.5 10*3/uL (0.1-1.0); NEUT # 9.1 10*3/uL (2.3-7.9); NEUT % 79.9 % (47.0-73.0); NUCLEATED RED BLOOD CELL 0.2 % (0.0-0.0); PLATELET COUNT AUTOMATED 175 10*3/uL (130-400); RED BLOOD COUNT 2.88 10*6/uL (4.10-5.10); RED CELL DISTRI WIDTH 16.4 % (0-14.5); WHITE BLOOD COUNT 11.4 10*3/uL (4.8-10.8)
[2022-10-03 05:11] LABS: ALKALINE PHOSPHATASE 85 U/L (46-116); BUN 37 mg/dl (9-23); CHLORIDE 112 mmol/L (98-107); LDH 472 U/L (120-246); SGPT/ALT 61 U/L (10-49); TOTAL PROTEIN 5.4 gm/dL (6.0-8.0)
[2022-10-03 07:45] LABS: ABG BASE EXCESS 3.3 mmol/L (-2.0-2.0); ARTERIAL BLOOD GAS PH 7.471 (7.35-7.45); ARTERIAL BLOOD GAS PO2 76.6 (80-90)
[2022-10-04] VITALS (9 sets, daily range): BP systolic 104–168; BP diastolic 50–80
[2022-10-04 05:26] LABS: ALKALINE PHOSPHATASE 112 U/L (46-116); BUN 29 mg/dl (9-23); CHLORIDE 108 mmol/L (98-107); LDH 487 U/L (120-246); POTASSIUM 3.9 mmol/L (3.4-5.1); SGPT/ALT 88 U/L (10-49); TOTAL PROTEIN 5.7 gm/dL (6.0-8.0)
[2022-10-04 06:17] LABS: BASO % 0.2 % (0.0-1.0); EOS # 0.5 10*3/uL (0.0-0.4); EOS % 3.8 % (1.0-4.0); HEMATOCRIT 24.8 % (37.0-47.0); LYMPH # 1.1 10*3/uL (1.3-4.4); LYMPH % 8.9 % (27.0-41.0); MEAN CELL VOLUME 85.5 fl (81.0-99.0); MEAN CORPUSCULAR HGB 26.2 pg (27.0-31.0); MEAN CORPUSCULAR HGB CONC 30.6 g/dl (33.0-37.0); MEAN PLATELET VOLUME 11.5 fl (9.6-12.3); MONO # 0.5 10*3/uL (0.1-1.0); MONO % 4.1 % (3.0-9.0); NEUT # 10.3 10*3/uL (2.3-7.9); NEUT % 82.1 % (47.0-73.0); NUCLEATED RED BLOOD CELL 0.2 % (0.0-0.0); PLATELET COUNT AUTOMATED 200 10*3/uL (130-400); RED CELL DISTRI WIDTH 16.4 % (0-14.5); WHITE BLOOD COUNT 12.5 10*3/uL (4.8-10.8)
[2022-10-05] VITALS (22 sets, daily range): BP systolic 119–178; BP diastolic 64–87
[2022-10-05 05:40] LABS: ALKALINE PHOSPHATASE 100 U/L (46-116); BUN 23 mg/dl (9-23); CHLORIDE 109 mmol/L (98-107); POTASSIUM 3.3 mmol/L (3.4-5.1); SGPT/ALT 58 U/L (10-49)
[2022-10-05 06:12] LABS: HEMATOCRIT 22.6 % (37.0-47.0); MEAN CELL VOLUME 86.3 fl (81.0-99.0); MEAN CORPUSCULAR HGB CONC 30.1 g/dl (33.0-37.0); MEAN PLATELET VOLUME 11.1 fl (9.6-12.3); NUCLEATED RED BLOOD CELL 0.2 % (0.0-0.0); PLATELET COUNT AUTOMATED 256 10*3/uL (130-400); RED BLOOD COUNT 2.62 10*6/uL (4.10-5.10); RED CELL DISTRI WIDTH 16.2 % (0-14.5); WHITE BLOOD COUNT 16.8 10*3/uL (4.8-10.8)
[2022-10-05 06:15] LABS: MANUAL DIFF REFLEX YES
[2022-10-05 06:59] LABS: TOTAL CELLS COUNTED 100 #CELLS
[2022-10-05 07:00] LABS: OVALOCYTES FEW; PLATELET SUFFICIENCY NORMAL (NORMAL); POLYCHROMASIA SLIGHT; ROULEAUX SLIGHT; TOXIC GRANULATION SLIGHT
[2022-10-05 20:43] LABS: HEMATOCRIT 35.9 % (37.0-47.0)
[2022-10-06] VITALS: BP 150/81
[2022-10-06 04:00] VITALS: BP 132/72
[2022-10-06 06:10] LABS: BASO % 0.2 % (0.0-1.0); EOS # 0.3 10*3/uL (0.0-0.4); EOS % 2.5 % (1.0-4.0); HEMATOCRIT 33.7 % (37.0-47.0); LYMPH # 1.1 10*3/uL (1.3-4.4); LYMPH % 8.7 % (27.0-41.0); MEAN CELL VOLUME 84.5 fl (81.0-99.0); MEAN CORPUSCULAR HGB 26.6 pg (27.0-31.0); MEAN CORPUSCULAR HGB CONC 31.5 g/dl (33.0-37.0); MEAN PLATELET VOLUME 11.1 fl (9.6-12.3); MONO # 0.6 10*3/uL (0.1-1.0); MONO % 4.9 % (3.0-9.0); NEUT # 10.1 10*3/uL (2.3-7.9); NEUT % 82.6 % (47.0-73.0); NUCLEATED RED BLOOD CELL 0.2 % (0.0-0.0); RED BLOOD COUNT 3.99 10*6/uL (4.10-5.10); RED CELL DISTRI WIDTH 16.2 % (0-14.5); WHITE BLOOD COUNT 12.2 10*3/uL (4.8-10.8)
[2022-10-06 06:54] LABS: ALKALINE PHOSPHATASE 99 U/L (46-116); BUN 23 mg/dl (9-23); CHLORIDE 105 mmol/L (98-107); POTASSIUM 3.5 mmol/L (3.4-5.1); SGPT/ALT 45 U/L (10-49); TOTAL PROTEIN 5.7 gm/dL (6.0-8.0)
[2022-10-06 07:08] LABS: PLATELET COUNT AUTOMATED 159 10*3/uL (130-400)
[2022-10-06 08:00] VITALS: BP 174/74
[2022-10-06 12:00] VITALS: BP 166/84
[2022-10-06 16:00] VITALS: BP 155/74
[2022-10-06 20:00] VITALS: BP 159/89
[2022-10-07] VITALS: BP 123/61
[2022-10-07 04:00] VITALS: BP 184/87
[2022-10-07 06:08] LABS: BASO % 0.2 % (0.0-1.0); EOS # 0.3 10*3/uL (0.0-0.4); EOS % 1.8 % (1.0-4.0); HEMATOCRIT 38.3 % (37.0-47.0); LYMPH # 0.8 10*3/uL (1.3-4.4); LYMPH % 5.8 % (27.0-41.0); MEAN CELL VOLUME 85.3 fl (81.0-99.0); MEAN CORPUSCULAR HGB 26.5 pg (27.0-31.0); MEAN CORPUSCULAR HGB CONC 31.1 g/dl (33.0-37.0); MEAN PLATELET VOLUME 10.9 fl (9.6-12.3); MONO # 0.8 10*3/uL (0.1-1.0); MONO % 5.5 % (3.0-9.0); NEUT # 12.6 10*3/uL (2.3-7.9); NEUT % 85.9 % (47.0-73.0); PLATELET COUNT AUTOMATED 204 10*3/uL (130-400); RED BLOOD COUNT 4.49 10*6/uL (4.10-5.10); RED CELL DISTRI WIDTH 16.3 % (0-14.5); WHITE BLOOD COUNT 14.6 10*3/uL (4.8-10.8)
[2022-10-07 06:16] LABS: ALKALINE PHOSPHATASE 128 U/L (46-116); BUN 21 mg/dl (9-23); CHLORIDE 107 mmol/L (98-107); POTASSIUM 3.7 mmol/L (3.4-5.1); SGPT/ALT 35 U/L (10-49); TOTAL PROTEIN 6.1 gm/dL (6.0-8.0)
[2022-10-07 08:00] VITALS: BP 179/99
[2022-10-07 12:00] VITALS: BP 122/62
[2022-10-07 16:00] VITALS: BP 133/70
[2022-10-07 20:00] VITALS: BP 151/73
[2022-10-08] VITALS: BP 145/70
[2022-10-08 04:00] VITALS: BP 177/86
[2022-10-08 04:27] LABS: HEMATOCRIT 38.9 % (37.0-47.0); MEAN CELL VOLUME 86.4 fl (81.0-99.0); MEAN CORPUSCULAR HGB 26.4 pg (27.0-31.0); MEAN CORPUSCULAR HGB CONC 30.6 g/dl (33.0-37.0); MEAN PLATELET VOLUME 10.7 fl (9.6-12.3); PLATELET COUNT AUTOMATED 211 10*3/uL (130-400); RED CELL DISTRI WIDTH 16.3 % (0-14.5); WHITE BLOOD COUNT 12.8 10*3/uL (4.8-10.8)
[2022-10-08 04:29] LABS: MANUAL DIFF REFLEX YES
[2022-10-08 04:52] LABS: OVALOCYTES FEW; PLATELET SUFFICIENCY NORMAL (NORMAL); POLYCHROMASIA SLIGHT; TOTAL CELLS COUNTED 100 #CELLS; TOXIC GRANULATION SLIGHT
[2022-10-08 04:55] LABS: ALKALINE PHOSPHATASE 177 U/L (46-116); BUN 27 mg/dl (9-23); CHLORIDE 104 mmol/L (98-107); SGPT/ALT 60 U/L (10-49); TOTAL PROTEIN 6.7 gm/dL (6.0-8.0)
[2022-10-08 05:02] LABS: POTASSIUM 4.7 mmol/L (3.4-5.1)
[2022-10-08 08:00] VITALS: BP 164/94
[2022-10-08 12:00] VITALS: BP 179/89
[2022-10-08] MEDS ORDERED: PREDNISONE10 MG PO (14:03)
[2022-10-08] MEDS ORDERED: LEVOFLOXACIN750 M2 PO (14:03)
== END 2022-10-08 13:56 | disposition hospice, inpatient (51) | DRG 870 ==
LOC: ED 09:20 → ICCU 13:26 → EDHOLD 13:26 → 5E 16:54 → 4E 21:49 → ICCU 09-22 03:47
PROVIDERS: Emergency Medicine; Internal Medicine; Internal Medicine Critical Care Medicine; Internal Medicine Infectious Disease; Internal Medicine Nephrology; Student in an Organized Health Care Education/Training Program; ADMIT Internal Medicine; ATTEND Internal Medicine
PROC: 5A0935A Assistance with Respiratory Ventilation, Less than 24 Consecutive Hours, High Flow/Velocity Cannula (ICD-10-PCS; 2022-09-21)
PROC: 5A09357 Assistance with Respiratory Ventilation, Less than 24 Consecutive Hours, Continuous Positive Airway Pressure (ICD-10-PCS; 2022-09-22)
PROC: 5A09357 Assistance with Respiratory Ventilation, Less than 24 Consecutive Hours, Continuous Positive Airway Pressure (ICD-10-PCS; 2022-09-23)
PROC: 5A0935A Assistance with Respiratory Ventilation, Less than 24 Consecutive Hours, High Flow/Velocity Cannula (ICD-10-PCS; 2022-09-23)
PROC: 5A09357 Assistance with Respiratory Ventilation, Less than 24 Consecutive Hours, Continuous Positive Airway Pressure (ICD-10-PCS; 2022-09-24)
PROC: 5A09357 Assistance with Respiratory Ventilation, Less than 24 Consecutive Hours, Continuous Positive Airway Pressure (ICD-10-PCS; 2022-09-25)
PROC: 5A09357 Assistance with Respiratory Ventilation, Less than 24 Consecutive Hours, Continuous Positive Airway Pressure (ICD-10-PCS; 2022-09-25)
PROC: 02HV33Z Insertion of Infusion Device into Superior Vena Cava, Percutaneous Approach (ICD-10-PCS; 2022-09-25)
PROC: B548ZZA Ultrasonography of Superior Vena Cava, Guidance (ICD-10-PCS; 2022-09-25)
PROC: 0BH17EZ Insertion of Endotracheal Airway into Trachea, Via Natural or Artificial Opening (ICD-10-PCS; principal; 2022-09-27)
PROC: 5A1955Z Respiratory Ventilation, Greater than 96 Consecutive Hours (ICD-10-PCS; 2022-09-27)
PROC: 5A09357 Assistance with Respiratory Ventilation, Less than 24 Consecutive Hours, Continuous Positive Airway Pressure (ICD-10-PCS; 2022-09-27)
PROC: 0B9J8ZX Drainage of Left Lower Lung Lobe, Via Natural or Artificial Opening Endoscopic, Diagnostic (ICD-10-PCS; 2022-09-28)
PROC: 0B928ZZ Drainage of Carina, Via Natural or Artificial Opening Endoscopic (ICD-10-PCS; 2022-09-28)
PROC: 0B948ZZ Drainage of Right Upper Lobe Bronchus, Via Natural or Artificial Opening Endoscopic (ICD-10-PCS; 2022-09-28)
PROC: 0B988ZZ Drainage of Left Upper Lobe Bronchus, Via Natural or Artificial Opening Endoscopic (ICD-10-PCS; 2022-09-28)
PROC: 0B918ZZ Drainage of Trachea, Via Natural or Artificial Opening Endoscopic (ICD-10-PCS; 2022-09-28)
PROC: 0B9 Respiratory System, Drainage (ICD-10-PCS; 2022-09-28)
PROC: 0B958ZZ Drainage of Right Middle Lobe Bronchus, Via Natural or Artificial Opening Endoscopic (ICD-10-PCS; 2022-09-28)
PROC: 0B938ZZ Drainage of Right Main Bronchus, Via Natural or Artificial Opening Endoscopic (ICD-10-PCS; 2022-09-28)
PROC: 0B978ZZ Drainage of Left Main Bronchus, Via Natural or Artificial Opening Endoscopic (ICD-10-PCS; 2022-09-28)
PROC: 0B968ZZ Drainage of Right Lower Lobe Bronchus, Via Natural or Artificial Opening Endoscopic (ICD-10-PCS; 2022-09-28)
PROC: 0B9B8ZZ Drainage of Left Lower Lobe Bronchus, Via Natural or Artificial Opening Endoscopic (ICD-10-PCS; 2022-09-28)
PROC: 0B998ZZ Drainage of Lingula Bronchus, Via Natural or Artificial Opening Endoscopic (ICD-10-PCS; 2022-09-28)
PROC: 5A09357 Assistance with Respiratory Ventilation, Less than 24 Consecutive Hours, Continuous Positive Airway Pressure (ICD-10-PCS; 2022-10-02)
PROC: 5A09357 Assistance with Respiratory Ventilation, Less than 24 Consecutive Hours, Continuous Positive Airway Pressure (ICD-10-PCS; 2022-10-02)
PROC: 5A0935A Assistance with Respiratory Ventilation, Less than 24 Consecutive Hours, High Flow/Velocity Cannula (ICD-10-PCS; 2022-10-02)
PROC: 5A09357 Assistance with Respiratory Ventilation, Less than 24 Consecutive Hours, Continuous Positive Airway Pressure (ICD-10-PCS; 2022-10-03)
PROC: 5A09357 Assistance with Respiratory Ventilation, Less than 24 Consecutive Hours, Continuous Positive Airway Pressure (ICD-10-PCS; 2022-10-04)
PROC: 30233N1 Transfusion of Nonautologous Red Blood Cells into Peripheral Vein, Percutaneous Approach (ICD-10-PCS; 2022-10-05)
PROC: 5A09457 Assistance with Respiratory Ventilation, 24-96 Consecutive Hours, Continuous Positive Airway Pressure (ICD-10-PCS; 2022-10-05)
PROC: 5A09357 Assistance with Respiratory Ventilation, Less than 24 Consecutive Hours, Continuous Positive Airway Pressure (ICD-10-PCS; 2022-10-06)
PROC: 5A09357 Assistance with Respiratory Ventilation, Less than 24 Consecutive Hours, Continuous Positive Airway Pressure (ICD-10-PCS; 2022-10-07)
PROC: 5A09357 Assistance with Respiratory Ventilation, Less than 24 Consecutive Hours, Continuous Positive Airway Pressure (ICD-10-PCS; 2022-10-08)
DX: A41.9 Sepsis, unspecified organism (principal); J18.9 Pneumonia, unspecified organism; J96.01 Acute respiratory failure with hypoxia; E43 Unspecified severe protein-calorie malnutrition; J96.02 Acute respiratory failure with hypercapnia; E87.0 Hyperosmolality and hypernatremia; D84.89 Other immunodeficiencies; J44.0 Chronic obstructive pulmonary disease with (acute) lower respiratory infection; N17.9 Acute kidney failure, unspecified; E87.1 Hypo-osmolality and hyponatremia; Z66 Do not resuscitate; E87.6 Hypokalemia; I12.9 Hypertensive chronic kidney disease with stage 1 through stage 4 chronic kidney disease, or unspecified chronic kidney disease; Z20.822 Contact with and (suspected) exposure to COVID-19; I08.0 Rheumatic disorders of both mitral and aortic valves; K44.9 Diaphragmatic hernia without obstruction or gangrene; K21.9 Gastro-esophageal reflux disease without esophagitis; I95.9 Hypotension, unspecified; R62.7 Adult failure to thrive; R91.8 Other nonspecific abnormal finding of lung field; R65.20 Severe sepsis without septic shock; E11.22 Type 2 diabetes mellitus with diabetic chronic kidney disease; N18.30 Chronic kidney disease, stage 3 unspecified; J84.10 Pulmonary fibrosis, unspecified; E78.5 Hyperlipidemia, unspecified; Z68.23 Body mass index [BMI] 23.0-23.9, adult; Z51.5 Encounter for palliative care; Z87.891 Personal history of nicotine dependence; Z98.51 Tubal ligation status; Z79.51 Long term (current) use of inhaled steroids; Z79.4 Long term (current) use of insulin

== ENCOUNTER 2022-10-08 14:17 | Inpatient (IN) | payer OTHER ==
[~2022-10-08] VITALS: Ht 157.5 cm; Wt 57.6 kg
[~2022-10-08 14:17] MED LIST changes: +LEVOFLOXACIN750 M2 PO; +PREDNISONE10 MG PO
[2022-10-08 16:00] VITALS: BP 118/64
[2022-10-08 20:00] VITALS: BP 146/69
[2022-10-09 08:00] VITALS: BP 81/54
[2022-10-09 12:00] VITALS: BP 80/54
[2022-10-09 16:00] VITALS: BP 49/26
[2022-10-09 20:00] VITALS: BP 114/45
== END 2022-10-10 00:20 | DRG 871 ==
LOC: ICCU 14:17 → 5E 14:17
PROVIDERS: ADMIT Internal Medicine; ATTEND Internal Medicine
DX: A41.9 Sepsis, unspecified organism (principal); E43 Unspecified severe protein-calorie malnutrition; J18.9 Pneumonia, unspecified organism; J96.01 Acute respiratory failure with hypoxia; E87.0 Hyperosmolality and hypernatremia; J44.1 Chronic obstructive pulmonary disease with (acute) exacerbation; J44.0 Chronic obstructive pulmonary disease with (acute) lower respiratory infection; R62.7 Adult failure to thrive; E11.22 Type 2 diabetes mellitus with diabetic chronic kidney disease; D72.810 Lymphocytopenia; I12.9 Hypertensive chronic kidney disease with stage 1 through stage 4 chronic kidney disease, or unspecified chronic kidney disease; N18.30 Chronic kidney disease, stage 3 unspecified; K44.9 Diaphragmatic hernia without obstruction or gangrene; R91.8 Other nonspecific abnormal finding of lung field; Z51.5 Encounter for palliative care; Z68.23 Body mass index [BMI] 23.0-23.9, adult